=== PATIENT | female | born 1990 | race Caucasian/White ===

== ENCOUNTER 2021-03-18 10:58 | Emergency (ER) | payer BC, MEDICAID ==
[~2021-03-18] VITALS: Ht 177.8 cm; Wt 113.4 kg
[2021-03-18 10:58] VITALS: BP_SYST 154
[2021-03-18] MEDS ORDERED: NACL 0.9% 1,000 ML IV ONE (11:30)
[2021-03-18] MEDS ORDERED: ONDANSETRON HCL 4 MG/2 ML VIAL IVP ONE (11:30)
[2021-03-18] MEDS ORDERED: MECLIZINE HCL 25 MG TABLET (ANITVERT) PO ONE (11:30)
[2021-03-18 11:47] LABS: BILIRUBIN,URINE NEGATIVE (NEGATIVE); BLOOD, URINE 1+ (NEGATIVE); CLARITY/URINE CLEAR (CLEAR); COLOR,URINE YELLOW (YELLOW); GLUCOSE,URINE NEGATIVE (NEGATIVE); KETONES,URINE NEGATIVE (NEGATIVE); LEUKOCYTE ESTERASE ,URINE TRACE (NEGATIVE); NITRITE, URINE NEGATIVE (NEGATIVE); PH,URINE 5.5 (5.0-8.0); PROTEIN URINE NEGATIVE (NEGATIVE); UROBILINOGEN,URINE 0.2 (0.2-1.0)
[2021-03-18 11:49] LABS: BASOPHILS # (AUTO) 0.1 K/uL (0.0-0.2); EOSINOPHILS % (AUTO) 0.6 % (0.0-4.0); HEMATOCRIT 44.9 % (36-48); HEMOGLOBIN 14.8 g/dL (12.0-16.0); LYMPHOCYTES # (AUTO) 1.9 K/uL (1.0-5.5); LYMPHOCYTES % (AUTO) 33.4 % (20.5-51.5); MEAN CORPUSCULAR HEMOGLOBIN 30 pg (27-31); MEAN CORPUSCULAR HGB CONC 33 % (32-36); MEAN CORPUSCULAR VOLUME 89 fL (79.0-98.0); MONOCYTES # (AUTO) 0.4 K/uL (0.0-1.0); MONOCYTES % (AUTO) 6.2 % (1.7-9.3); NEUTROPHILS # (AUTO) 3.4 K/uL (1.8-7.7); NEUTROPHILS % (AUTO) 58.8 % (40.0-70.0); PLATELET COUNT (AUTO) 293 K/uL (130-430); RED BLOOD CELL COUNT(AUTO) 5.02 MIL/uL (4.2-6.2); RED CELL DISTRIBUTION WIDTH 14.1 % (9.0-15.0); WHITE BLOOD COUNT (AUTO) 5.8 K/uL (4.8-10.8)
[2021-03-18 11:58] LABS: CALCIUM 9.7 mg/dL (8.4-11.0); CREATININE 0.94 mg/dL (0.55-1.30); POTASSIUM 3.7 mmol/L (3.5-5.1)
[2021-03-18 12:01] LABS: BARBITURATE, URINE NEGATIVE (NEG <=200); BENZODIAZEPINE, URINE NEGATIVE (NEG <=150); CANNABINOID, URINE NEGATIVE (NEG <=50); COCAINE, URINE NEGATIVE (NEG <=150); METHAMPHETAMINES SCREEN,URINE NEGATIVE (NEG <=500); OPIATE, URINE NEGATIVE (NEG <=100); PHENCYCLIDINE SCREEN,URINE NEGATIVE (NEG <=25); URINE AMPHETAMINE NEGATIVE (NEG <=500); URINE METHADONE NEGATIVE (NEG <=200); URINE OXYCODONE SCREEN NEGATIVE (NEG <=100); URINE PROPOXYPHENE SCREEN NEGATIVE (NEG <=300)
[2021-03-18 12:02] LABS: PROTHROMBIN TIME 9.9 SECS (9.5-12.5)
[2021-03-18 12:02] LABS: UR TRICYCLIC ANTIDEPRESSANTS NEGATIVE (NEG <=300)
[2021-03-18 12:04] LABS: TOTAL BILIRUBIN 0.3 mg/dL (0.0-1.0)
[2021-03-18 12:07] LABS: BACTERIA,URINE FEW /HPF (None Seen)
[2021-03-18] MEDS ORDERED: ACETAMINOPHEN 325 MG TABLET PO ONE (15:00)
[2021-03-18] MEDS ORDERED: PROCHLORPERAZINE EDISYLATE 10 MG/2 ML VIAL IVP ONE (15:00)
[2021-03-18] MEDS ORDERED: DIAZEPAM 10 MG/2 ML DISP.SYRIN IVP ONE (15:00)
[2021-03-18] MEDS ORDERED: DIAZ5TAB4 PO (15:08)
[2021-03-18] MEDS ORDERED: PROC5TAB12 PO (15:08)
[2021-03-18] MEDS ORDERED: DIAZEPAM 5 MG TABLET (VALIUM) PO ONE ×2 (15:15→15:45)
[2021-03-18] MEDS ORDERED: DIAZEPAM 5 MG TABLET (VALIUM) ONE (15:19)
[2021-03-18 15:58] VITALS: BP_SYST 131
== END 2021-03-18 15:58 | disposition home or self-care (01) ==
LOC: SED 10:58
DX: R42 Dizziness and giddiness (principal); F41.9 Anxiety disorder, unspecified; J45.909 Unspecified asthma, uncomplicated; Z79.899 Other long term (current) drug therapy
CPT/HCPCS: 36415; 71045; 80053; 80307; 81000; 85025; 85610; 85730; 93005; 96361; 96374; 96375; 99285; J0780; J2405; J7030; J8597